=== PATIENT | female | born 1990 | race Caucasian/White ===

== ENCOUNTER → 2016-11-13 | Outpatient (CLI) | payer OTHER ==
--- NOTE | 2016-11-13 10:57 | DI ---
XR WRIST COMPLETE MIN 3VW,11/13/2016 9:20 AM: Clinical History: Right wrist pain Previous Exam: None at this facility. Findings: 3 views of the right wrist are obtained, and demonstrate anatomic alignment without fractures. The oseguera rrounding soft tissues are unremarkable. Impression: Normal right wrist.
== END ==
LOC: ORTHO 09:26
PROVIDERS: ATTEND Orthopaedic Surgery
DX: M25.531 Pain in right wrist (principal); M65.4 Radial styloid tenosynovitis [de Quervain]
CPT/HCPCS: 73110

== ENCOUNTER 2016-12-05 11:24 | Emergency (ER) | payer OTHER ==
[2016-12-05 11:43] VITALS: RESP 16; TEMP 97
[2016-12-05] MEDS ORDERED: TETRACAINE 0.5% - 2 ML EYE DROPS EACH EYE ONE (11:45)
[2016-12-05] MEDS ORDERED: FLUORESCEIN 1 MG EYE STRIP EACH EYE ONE (11:45)
--- NOTE | 2016-12-06 06:48 | PDOC ---
Eye Complaint HPI - General Chief Complaint: Eye Problem / Injury Stated Complaint: right eye red/swollen Date Seen by Provider: 12/05/16 Time Seen by Provider: 11:35 Source: POSITIVE: Patient Exam Limitations: POSITIVE: No limitations Nurse's Notes Reviewed & Considered: Yes - History of Present Illness Initial Comments: The patient is a 25-year-old female. She states that around 6 PM yesterday evening she was playing with her daughter and she developed an abrupt onset of pain to the right eye. Patient describes a foreign body sensation. The patient 's boyfriend looked into her eye and thought he saw a foreign body in her right eye and attempted to remove it by rubbing the corner of a moistened paper towel over the cornea. This did not improve the patient's condition. Patient wears glasses but not contact lenses. Have you received a tetanus shot in the past 10 years?: Yes Location: Right Eye Timing: REPORTS: Abrupt Duration: <24 hours (Onset approximately 17 hours CIRCUIT TESTER) Severity: Moderate Quality: REPORTS: "Pain", Other (Foreign body sensation) Recent Injury: REPORTS: Possibly (As above) Associated Symptoms: REPORTS: Pain, Foreign Body Sensation Context: REPORTS: Other (Possible foreign body) Location at Time of Onset: REPORTS: Home Concurrent Injuries: DENIES: Neck, Head, Back, Chest, Abdomen, Extremities, Face , Other Modifying Factors: REPORTS: Nothing Exacerbates Similar Symptoms Previously: No Recent Care Received: REPORTS: Denies Any Prior Injuries Related to Current Complaint?: No - Patient Home Medications Home Medications: Home Medications Ibuprofen 1 tab PO TID #90 tab 08/12/16 Omeprazole 1 cap PO DAILY #30 cap 08/31/16 Bupropion HCl [Wellbutrin Sr] 1 tab PO BID tab 10/26/16 Nabumetone 1 unit PO BID #45 tab 10/26/16 RisperiDONE Tab [Risperdal Tab] 1 mg PO TID tab 10/26/16 Sulfacetamide Oph Soln 10% [Bleph 10 Ophth Soln] 50 drp EACH EYE Q6H #1 bottle 12/05/16 - Patient Allergies Allergies/Adverse Reactions: Allergies Allergy/AdvReac Type Severity Reaction Status Date / Time No Known Allergies Allergy Verified 12/05/16 11:27 Past Medical History - heen HEENT History: Denies History Cardiovascular History: Syncope Respiratory History: Other (please comment) Additional Respiratory History: smoker Gastrointestinal History: Denies History Genitourinary History: Denies History Endocrine History: Denies History Musculoskeletal History: Denies History Prosthesis or Implant: No Neurological History: Denies History Blood Disorders: Denies History Psychiatric History: Denies History History of Sexually Transmitted Diseases: No LMP: 12/05/16 Cancer History: Denies History In Past Year Been Physically Harmed or Verbally Threatened: No History of MDRO: No Other Type of MDRO: HX of staff in sore on buttocks History of Other Communicable Diseases: No Tobacco Use: Current Every Day Smoker Alcohol Use: None Substance Use Type: None Previous Surgical History: No Significant Family History: No pertinent family hx Past Medical History Reviewed: Reviewed - No Changes ROS - Limitations ROS Limitations: No Limitations Constitution: REPORTS: Denies Symptoms Cardiovascular: REPORTS: Denies Cardiac Symptoms Respiratory: REPORTS: Denies Resp Symptoms Neurological: REPORTS: Denies Neuro Symptoms Gastrointestinal: REPORTS: Denies GI Symptoms Endocrine: REPORTS: Denies Symptoms Musculoskeletal: REPORTS: Denies MS Symptoms Genitourinary: REPORTS: Denies Symptoms Eyes: REPORTS: Eye Pain (Right) ENT: REPORTS: Denies Symptoms Skin: REPORTS: Denies Skin Symptoms Lympathic: REPORTS: Denies Lympathic Symptoms Immunologic: POSITIVE: Denies Symptoms Psychiatric: POSITIVE: Denies Psych Symptoms Eye Complaint Physical Exam - General Appearance General Appearance: POSITIVE: Alert, Cooperative, No Acute Distress, No Evidence of Trauma - Visual Acuity / Pupil Size Pupil Size: 3 mm: Bilateral (PERRLA) - HEENT Head / Face: POSITIVE: Atraumatic, Normal Inspection, No Facial Swelling Eyes: POSITIVE: Inspection Normal, PERRL, EOM's Intact, Eyelids Uninjured, Conjunctivae Uninjured, No Nystagmus, No Globe Trauma, Sclera Normal, Ant. Chamber Nml Inspect., Posterior Segments Normal, Corneal Abrasion. NEGATIVE: Fluorescein Exam Normal, Normal Corneal Inspection (Corneal abrasion mid medial aspect of cornea), Normal Fundoscopic Exam (Fluorescein uptake at site of abrasion) Ears: POSITIVE: Ears Normal Inspection, TM Normal Inspection, Auricle Normal, External Canal Normal Nose: POSITIVE: Inspection Normal, No Apparent Trauma, Nares Normal, No CSF Leak Oropharynx: POSITIVE: External Inspection Nml, Pharynx Inspect. Nml, Airway Intact, Voice Normal, Moist Mucous Membranes, No Oral Injury, Lips Normal, Gums Normal, No Drooling, No Thrush, Normal Gag Reflex Dental: POSITIVE: No Dental Injury - Skin Skin: POSITIVE: Normal Color, No Skin Rash - Neck / Back Neck/Back: POSITIVE: Normal Inspection, Non-Tender, Painless ROM - Respiratory / Cardiovascular Respiratory / CVS: POSITIVE: No Respiratory Distress, Breath Sounds Normal, Regular Rate/Rhythm, Heart Sounds Normal Peripheral Pulses: Radial (R): 2+, Radial (L): 2+ - Neurological / Psychological Neuro / Psych: POSITIVE: Oriented to Person, Oriented to Place, Oriented to Time , CN's Normal as Tested, Normal Speech, Normal Cognition, Appropriate Mood, Appropriate Affect Images - Eyes Eye: 1 - Corneal abrasion Eye Complaint Progress - Patient's Progress Pain Medication Addressed: POSITIVE: Yes School/Work Release Addressed: POSITIVE: Not Applicable (Recommended Advil or Tylenol) Re-Examine Time:: 12:00 Status: POSITIVE: Unchanged - Consult Counseled: POSITIVE: Patient, RE: DX, RE: Need for F/U Patient Care Time - Estimated PCT Patient Care Time (In Minutes): 30 Vital Signs - VS Reviewed Vital Signs Reviewed: Yes Discharge Clinical Impression: Corneal abrasion Discharge Disposition: Discharged to Home Condition: Fair Prescriptions / Orders: Sulfacetamide Oph Soln 10% [Bleph 10 Ophth Soln] 50 drp EACH EYE Q6H #1 bottle Patient Instructions Given at Discharge: Corneal Abrasion (ED) Additional Instructions: Sulfacetamide eyedrops, 4 every 4-6 hours while awake. Return any time if condition worsens. Follow-up with your eye doctor if not back to normal in 3 or 4 days. Avoid wind son and dust. Follow Up With: PATRICK LAND [Primary Care Provider] - (Instructions as above. Follow-up with your eye physician. Return here anytime if condition worsens.)
== END 2016-12-05 12:03 | disposition home or self-care (01) ==
LOC: ER 11:24
DX: S05.01XA Injury of conjunctiva and corneal abrasion without foreign body, right eye, initial encounter (principal)
CPT/HCPCS: 99282